=== PATIENT | male | born 1985 | race African-American/Black ===

== ENCOUNTER 2018-02-28 10:59 | Observation (INO) | payer OTHER ==
[~2018-02-28] VITALS: Ht 185.4 cm; Wt 67.4 kg
[2018-02-28] MEDS ORDERED: ONDANSETRON INJ 2 MG/ML 2 ML VIAL IV STA (11:42)
[2018-02-28] MEDS ORDERED: SODIUM CHLORIDE 0.9% 1000ML 1,000 ML IV STA (11:42)
[2018-02-28 12:15] LABS: BASO % 0.1 %; BASO ABS # 0.01 K/uL (0-0.2); HEMATOCRIT 40.6 % (42-52); HEMOGLOBIN 14.8 g/dL (14.0-18.0); IG# 0.03 K/uL (0.00-0.02); LYMPH ABS # 0.58 K/uL (1.2-3.4); MEAN CORPUSCULAR HGB CONC 36.5 g/dl (32-36); MEAN PLATELET VOLUME 10.6 fL (7.4-10.4); MONO % 5.1 %; MONO ABS # 0.59 K/uL (0.11-0.59); NEUT % 89.5 %; NEUT ABS # 10.45 K/uL (1.4-6.5); PLATELET COUNT 158 K/uL (130-400); RED CELL DISTRIBUTION WIDTH CV 11.9 % (11.5-14.5); RED CELL DISTRIBUTION WIDTH SD 41.5 fL (36.4-46.3); WHITE BLOOD COUNT 11.66 K/uL (4.8-10.8)
[2018-02-28 12:31] LABS: BLOOD UREA NITROGEN 16 mg/dl (7-18); CALCIUM 8.9 mg/dl (8.5-10.1); CARBON DIOXIDE 29 mmol/L (21-32); CREATININE 1.11 mg/dl (0.60-1.40); GLUCOSE 110 mg/dl (70-99); POTASSIUM 4.2 mmol/L (3.5-5.1); SODIUM 136 mmol/L (136-145)
--- NOTE | 2018-02-28 12:40 | DIAGNOSTIC IMAGING REPORT ---
HEAD CT NONCONTRAST CT DOSE: 638.56 mGycm HISTORY: Headache. Evaluate for hemorrhage or pathology TECHNIQUE: Multiaxial CT images of the head were performed without the use of intravenous contrast. Automated exposure control was utilized for this study. A dose lowering technique was utilized adhering to the principles of ALARA. Comparison: None. Findings: The paranasal sinuses and mastoid air cells are clear. The calvarium and skull base are intact. The ventricles and sulci are within normal limits. There is no mass, hematoma, midline shift, or acute infarct. Impression: No acute intracranial abnormality. Electronically signed by: Gal Barraza M.D. 02/28/2018 12:39 PM Dictated Date/Time: 02/28/2018 12:32 PM
--- NOTE | 2018-02-28 16:04 | EMERGENCY ROOM VISIT NOTE ---
ED Visit Note First contact with patient: 15:23 The patient was seen and examined with Karla. I agree with the history, physical and findings. Please see the note for disposition and details. Patient reported having syncopal episode while in [facility] waiting against a wall. He was not undergoing any exertional activity at that time. To me he did report some mild chest pain before he passed out. Currently he reports no chest pain. Patient reports no shortness of breath, no hemoptysis, no recent travel, no exogenous hormone or steroid usage, no recent surgery or trauma. Initial EKG showed sinus rhythm with concave ST elevation. Repeat EKG showed sinus rhythm with a rate of 65, NE QRS and QTc intervals within normal limits. Concave ST elevation in leads V4 through V6. Early repolarization seen in V2 and V3. Bedside point care ultrasound did not reveal any pericardial effusion or tamponade. Troponin negative. CT of the head negative. Physical exam within normal limits including no meningeal sign, cardiac regular rate rhythm S1 -S2 auscultated palpable radial pulses bilateral upper extremity palpable DP pulse bilateral lower extremities, lungs clear to auscultation bilaterally, no pain on palpation of the abdomen. Discussed the patient's EKG with Dr. Lyon on -call Soft Work Wrapper Layer And Examiner who agrees that the patient's EKG looks most like early repolarization. Patient has never had any cardiac workup. Will admit to the hospital for chest pain rule out ACS and syncope workup.
[2018-02-28] MEDS ORDERED: ONDANSETRON INJ 2 MG/ML 2 ML VIAL IV PRN (16:30)
[2018-02-28] MEDS ORDERED: ACETAMINOPHEN 325 MG TAB PO PRN (16:30)
--- NOTE | 2018-02-28 16:38 | History and Physical ---
History & Physical Date & Time of Service: Feb 28, 2018 at 16:31 Chief Complaint: Suspected Illicit Drug Use Primary Care Physician: Theresa MONDRAGON History of Present Illness Source: patient This is a 32 year old male with no PMH presented from [facility] for a syncopal episode. Patient states he was in his usual state of health this morning when he passed out; he lost consciousness and does not recall the events of it. Did not have any tongue biting or urine/stool incontinence during the event. Denies chest pain/shortness of breath. Denies nausea/vomiting/diarrhea. States he has been smoking cigarettes more than usual and drinking more coffee; but has had decreased PO intake due to the food at [facility] not being good. Denies having this episode in the past. Currently, he feels fine. Past Medical/Surgical History Medical Problems: (1) Acute electrocardiogram changes (2) Syncope and collapse Family History Maternal Grandmother - DM2, ? seizures Social History Smoking Status: Current Every Day Smoker Allergies Coded Allergies: No Known Allergies (Unverified , 02/28/18) Home Medications No Active Prescriptions or Reported Meds Review of Systems Constitutional: + weakness, No fever, No chills, No sweats, No weight loss, No fatigue Eyes: No worsening of vision ENT: No hearing loss Respiratory: No cough, No sputum, No wheezing, No shortness of breath, No dyspnea on exertion, No dyspnea at rest, No hemoptysis Cardiovascular: No chest pain, No edema, No palpitations Abdomen: No pain, No nausea, No vomiting, No diarrhea, No constipation, No GI bleeding Musculoskeletal: No joint pain, No muscle pain Genitourinary - Male: No hematuria, No dysuria, No urinary frequency, No urinary urgency Neurologic: + memory loss, No paralysis, No weakness, No numbness/tingling, No vertigo, No balance problems Psychiatric: No depression symptoms, No anxiety, No insomnia Endocrine: No fatigue Hematologic / Lymphatic: No abnormal bleeding/bruising Integumentary: No rash Allergic / Immunologic: No environmental allergies, No seasonal allergies Physical Exam Vital Signs Date Time Temp Pulse Resp B/P (MAP) Pulse Ox O2 Delivery O2 Flow Rate FiO2 02/28/18 14:45 64 15 02/28/18 14:35 71 13 02/28/18 14:25 63 15 02/28/18 14:15 70 15 02/28/18 14:05 70 14 02/28/18 13:55 66 16 02/28/18 13:45 65 23 02/28/18 13:40 56 18 116/72 99 Room Air 02/28/18 12:15 68 02/28/18 12:08 67 112/71 60 115/77 02/28/18 12:05 115/77 02/28/18 11:02 36.3 72 18 110/71 98 Room Air General Appearance: WD/WN, no apparent distress Head: normocephalic, atraumatic Eyes: normal inspection, PERRL, EOMI ENT: normal ENT inspection, hearing grossly normal Neck: supple Respiratory/Chest: chest non-tender, lungs clear, normal breath sounds, no respiratory distress, no accessory muscle use Cardiovascular: regular rate, rhythm, no edema, no gallop, no JVD, no murmur, normal peripheral pulses Abdomen/GI: normal bowel sounds, non tender, soft Back: no muscle spasm Extremities/Musculoskelatal: normal inspection, no calf tenderness, normal capillary refill, no pedal edema, normal range of motion Neurologic/Psych: data entry processor II-XII nml as tested, no motor/sensory deficits, alert, normal mood/affect, oriented x 3 Skin: normal color Lymphatic: no adenopathy Diagnostics Laboratory Results Results Past 24 Hours Test 02/28/18 12:00 02/28/18 13:30 02/28/18 15:08 02/28/18 15:10 Range/Units White Blood Count 11.66 4.8-10.8 K/uL Red Blood Count 4.23 4.7-6.1 M/uL Hemoglobin 14.8 14.0-18.0 g/dL Hematocrit 40.6 42-52 % Mean Corpuscular Volume 96.0 80-100 fL Mean Corpuscular Hemoglobin 35.0 25-34 pg Mean Corpuscular Hemoglobin Concent 36.5 32-36 g/dl Platelet Count 158 130-400 K/uL Mean Platelet Volume 10.6 7.4-10.4 fL Neutrophils (%) (Auto) 89.5 % Lymphocytes (%) (Auto) 5.0 % Monocytes (%) (Auto) 5.1 % Eosinophils (%) (Auto) 0.0 % Basophils (%) (Auto) 0.1 % Neutrophils # (Auto) 10.45 1.4-6.5 K/uL Lymphocytes # (Auto) 0.58 1.2-3.4 K/uL Monocytes # (Auto) 0.59 0.11-0.59 K/uL Eosinophils # (Auto) 0.00 0-0.5 K/uL Basophils # (Auto) 0.01 0-0.2 K/uL RDW Standard Deviation 41.5 36.4-46.3 fL RDW Coefficient of Variation 11.9 11.5-14.5 % Immature Granulocyte % (Auto) 0.3 % Immature Granulocyte # (Auto) 0.03 0.00-0.02 K/uL Sodium Level 136 136-145 mmol/L Potassium Level 4.2 3.5-5.1 mmol/L Chloride Level 103 98-107 mmol/L Carbon Dioxide Level 29 21-32 mmol/L Anion Gap 4.0 3-11 mmol/L Blood Urea Nitrogen 16 7-18 mg/dl Creatinine 1.11 0.60-1.40 mg/dl Estimated GFR () 101.3 Estimated GFR (Non- 87.4 BUN/Creatinine Ratio 14.8 10-20 Random Glucose 110 70-99 mg/dl Calcium Level 8.9 8.5-10.1 mg/dl Urine Color YELLOW Urine Appearance CLEAR CLEAR Urine pH 5.0 4.5-7.5 Urine Specific [place] 1.019 1.000-1.030 Urine Protein NEG NEG Urine Glucose (UA) NEG NEG Urine Ketones NEG NEG Urine Occult Blood NEG NEG Urine Nitrite NEG NEG Urine Bilirubin NEG NEG Urine Urobilinogen NEG NEG Urine Leukocyte Esterase NEG NEG Urine Opiates Screen NEG NEG Urine Methadone, Qualitative NEG NEG Urine Barbiturates NEG NEG Urine Phencyclidine (PCP) Level NEG NEG Ur Amphetamine/Methamphetamine NEG NEG MDMA (Ecstasy) Screen NEG NEG Urine Benzodiazepines Screen NEG NEG Urine Cocaine Metabolite NEG NEG Urine Marijuana (THC) NEG NEG Troponin I < 0.015 0-0.045 ng/ml Bedside Troponin I < 0.030 0-0.045 ng/ml Test 02/28/18 16:19 Range/Units Diagnostic Radiology HEAD CT NONCONTRAST CT DOSE: 638.56 mGycm HISTORY: Headache. Evaluate for hemorrhage or pathology TECHNIQUE: Multiaxial CT images of the head were performed without the use of intravenous contrast. Automated exposure control was utilized for this study. A dose lowering technique was utilized adhering to the principles of ALARA. Comparison: None. Findings: The paranasal sinuses and mastoid air cells are clear. The calvarium and skull base are intact. The ventricles and sulci are within normal limits. There is no mass, hematoma, midline shift, or acute infarct. Impression: No acute intracranial abnormality. EKG Normal sinus rhythm Early repolarization Normal ECG Impression Assessment and Plan This is a 32 year old male with no PMH presented from [facility] for a syncopal episode. Syncope - patient states that he had syncopal episode with loss of consciousness - states witnesses stated he was "shaking", but no tongue biting, urine/stool incontinence - will check an EEG to rule out seizure - some early repolarization changes on EKG, denies chest pain or palpitations - will check an echo and carotids, monitor in tele, recheck EKG in AM - likely dehydration, creatinine is at 1.1; will give IVFs, encourage PO intake - U-tox negative, urine negative, will check a CXR Tobacco Use Disorder - smokes cigarettes, but unsure how much, states he smokes a lot and constantly - does not need a nicotine patch at this time - encouraged cessation FULL CODE Resuscitation Status VTE Prophylaxis Will order VTE Prophylaxis: No Reason for no VTE drug order: Treatment not indicated Reason no Mechanical VTE Order: Treatment not indicated
--- NOTE | 2018-02-28 16:55 | DIAGNOSTIC IMAGING REPORT ---
CHEST 2 VIEWS ROUTINE CLINICAL HISTORY: 32 years-old Male presenting with syncope, elevated white count. TECHNIQUE: PA and lateral views of the chest were obtained. COMPARISON: None. FINDINGS: Cardiomediastinal silhouette normal. Lungs and pleural spaces clear. Osseous structures normal. Upper abdomen normal. IMPRESSION: 1. No acute cardiopulmonary disease. Electronically signed by: Wilmer Livingston M.D. 02/28/2018 4:54 PM Dictated Date/Time: 02/28/2018 4:53 PM
--- NOTE | 2018-02-28 17:51 | DIAGNOSTIC IMAGING REPORT ---
ULTRASOUND OF THE CAROTID ARTERIES CLINICAL HISTORY: syncope COMPARISON STUDY: None. TECHNIQUE: Real-time, grayscale, and color Doppler sonography of the carotid arteries was performed. Imaging reviewed in the transverse and longitudinal planes. NASCET criteria was utilized for stenosis calcification. FINDINGS: There is minimal atherosclerotic plaque present . The peak systolic velocity within the right internal carotid artery is 150 cm/sec. The systolic velocity ratio of right internal to common carotid artery is 1.1. The peak systolic velocity within the left internal carotid artery is 153 cm/sec. The systolic velocity ratio left internal to common carotid artery is 1.2. Antegrade flow is seen in the vertebral arteries. The external carotid arteries are patent. Blood pressure in the right arm measured 116 mm/Hg. Blood pressure in the left arm measured 110 mm/Hg. IMPRESSION: No evidence of hemodynamically significant carotid stenosis. Electronically signed by: Stuart Lujan M.D. 02/28/2018 5:50 PM Dictated Date/Time: 02/28/2018 5:48 PM
[2018-02-28 18:00] VITALS: BP 118/73; PULSE 56; TEMP 36.3; O2SAT 100; Ht 185.4 cm; Wt 67.4 kg
[2018-02-28] MEDS: SODIUM CHLORIDE 0.9% 1000ML 1,000 ML IV SCH (18:31)
[2018-02-28 19:32] VITALS: BP_SYST 107; BP_SYST 114; BP_SYST 123; BP_DIAS 63; BP_DIAS 66; BP_DIAS 69; PULSE 55; O2SAT 95
--- NOTE | 2018-02-28 20:38 | EMERGENCY ROOM VISIT NOTE ---
ED Visit Note First contact with patient: 11:23 Chief Complaint: Fall. History of Present Illness: Mr. Stoll is a 32-year-old black male who ambulates into the ED accompanied by 2 building guard deputy sheriff following a collapse. It is reported that the patient was out in the yard at the longterm, had a possible syncopal episode, striking his head and having an unknown length of loss of consciousness. There is no documentation from the longterm of how long the loss of consciousness was and the guards with him only saw the prisoner after he was awake. The patient reports he is amnestic to the event and just remembers walking out into the yard but no events after that. When he was evaluated after the collapse by medical personnel while he was at the longterm he complained of a frontal headache. He was evaluated and found to have tactile hallucinations and flight of ideas and paranoia. [facility] staff questioned whether he has been using illicit drugs. Historically patient denies any previous syncopal episodes, coronary artery disease, hypertension, dyslipidemia, diabetes and family history of heart disease. Before the collapse patient reports he was not having any symptoms and denied lightheadedness, dizziness, chest pain, palpitations. Currently patient is complaining of head pain over the left parietal area. He rates his discomfort 4/10. His pain is nonradiating. His pain worsens with palpation of the left parietal area. He has not identified any alleviating factors related to the pain. He reports he was not taken any medication for pain prior to arrival at the hospital. Associated with his pain he reports he is nauseated and has not vomited. Additionally patient complains of blurry vision for the last few months. He reports last time he was seen by ophthalmology was over a year ago. He denies dizziness, lightheadedness, hearing changes, difficulty speaking, difficulty swallowing, difficulty walking/coordinating body movements, neck pain , back pain, chest pain/discomfort, shortness of breath, abdominal pain, extremity weakness/numbness/tingling Review of Systems: As noted above in history of present illness. All body systems were reviewed and found to be negative as noted above. Past Medical History: Unspecified gastrointestinal disorder. Current Medications: Patient denies. Allergies to Medications: Patient denies. Social History: Patient is currently a prisoner; he admits to tobacco use Physical Examination: Vital Signs: Date Time Temp Pulse Resp B/P (MAP) Pulse Ox O2 Delivery O2 Flow Rate FiO2 02/28/18 16:25 54 17 02/28/18 16:20 57 14 02/28/18 16:15 59 15 02/28/18 16:10 62 15 02/28/18 16:05 60 15 02/28/18 16:00 61 16 02/28/18 15:55 78 16 02/28/18 15:50 62 14 02/28/18 15:45 61 14 02/28/18 15:40 63 15 02/28/18 15:39 112/70 02/28/18 15:35 71 18 02/28/18 15:30 64 18 02/28/18 15:25 76 16 02/28/18 15:20 58 10 02/28/18 15:15 61 15 02/28/18 15:10 71 15 02/28/18 15:05 61 14 02/28/18 15:00 72 15 02/28/18 14:55 66 13 02/28/18 14:50 72 16 02/28/18 14:45 64 15 02/28/18 14:35 71 13 02/28/18 14:25 63 15 02/28/18 14:15 70 15 02/28/18 14:05 70 14 02/28/18 13:55 66 16 02/28/18 13:45 65 23 02/28/18 13:40 56 18 116/72 99 Room Air 02/28/18 12:15 68 02/28/18 12:08 67 112/71 60 115/77 02/28/18 12:05 115/77 02/28/18 11:02 36.3 72 18 110/71 98 Room Air GENERAL: 32-year-old female in mild to moderate distress due to pain, nontoxic- appearing, afebrile and hemodynamically stable. NEUROLOGICAL: Awake, alert and oriented to person, place and time. Answering questions appropriately and following commands. Normal gait. Good hand eye coordination. Cranial nerves II through XII grossly intact. Able to spell world backwards and count backwards. Good short-term and long-term recall. PSYCHOLOGICAL: Alert and oriented. Acting appropriately. No appreciated delusional thoughts. No signs of paranoia. Not responding to any internal or external to stimuli. Denies visual, auditory and tactile hallucinations. No flight of ideas noted. SKIN: Warm, dry and pink. No soft tissue eruptions or trauma noted. HEENT: Atraumatic and normocephalic. Skull: No bony deformity or crepitus. Mild tenderness over the left parietal area without swelling or ecchymosis. No raccoons eyes or [place] signs. No drainage from the ears of the nostril; no hemotympanum. Face: No bony deformity, bony crepitus, swelling or ecchymosis. PERRLA. EOMI without nystagmus. Sclera white and conjunctiva pink. No malocclusion. No intraoral trauma. Airway is patent. Speech is normal and clear. Trachea midline. No jugular venous distention. No carotid bruits. BACK: No tenderness over the bony cervical, thoracic and lumbar spine. Full range of motion of the cervical spine. No CVA tenderness. THORAX: Lungs sounds are clear to auscultation and equal bilaterally with symmetrical chest wall. No wheezing, rales or rhonchi. No crepitus, tenderness , subcutaneous air or deformities noted. HEART: Regular rate and rhythm. No gallops, rubs or murmurs are appreciated. ABDOMEN: Flat, soft and nontender. Positive bowel sounds in all quadrants. No guarding, rigidity or organomegaly. EXTREMITIES: Moves all extremities well on command and with purpose. All distal neurovascular statuses are intact and equal bilaterally. No calf tenderness or cords. ED Course: Patient is assessed as noted above. Patient's medication list was reviewed. Laboratory Testing: Test 02/28/18 12:00 02/28/18 13:30 02/28/18 15:08 02/28/18 15:10 Range/Units White Blood Count 11.66 4.8-10.8 K/uL Red Blood Count 4.23 4.7-6.1 M/uL Hemoglobin 14.8 14.0-18.0 g/dL Hematocrit 40.6 42-52 % Mean Corpuscular Volume 96.0 80-100 fL Mean Corpuscular Hemoglobin 35.0 25-34 pg Mean Corpuscular Hemoglobin Concent 36.5 32-36 g/dl Platelet Count 158 130-400 K/uL Mean Platelet Volume 10.6 7.4-10.4 fL Neutrophils (%) (Auto) 89.5 % Lymphocytes (%) (Auto) 5.0 % Monocytes (%) (Auto) 5.1 % Eosinophils (%) (Auto) 0.0 % Basophils (%) (Auto) 0.1 % Neutrophils # (Auto) 10.45 1.4-6.5 K/uL Lymphocytes # (Auto) 0.58 1.2-3.4 K/uL Monocytes # (Auto) 0.59 0.11-0.59 K/uL Eosinophils # (Auto) 0.00 0-0.5 K/uL Basophils # (Auto) 0.01 0-0.2 K/uL RDW Standard Deviation 41.5 36.4-46.3 fL RDW Coefficient of Variation 11.9 11.5-14.5 % Immature Granulocyte % (Auto) 0.3 % Immature Granulocyte # (Auto) 0.03 0.00-0.02 K/uL Sodium Level 136 136-145 mmol/L Potassium Level 4.2 3.5-5.1 mmol/L Chloride Level 103 98-107 mmol/L Carbon Dioxide Level 29 21-32 mmol/L Anion Gap 4.0 3-11 mmol/L Blood Urea Nitrogen 16 7-18 mg/dl Creatinine 1.11 0.60-1.40 mg/dl Estimated GFR () 101.3 Estimated GFR (Non- 87.4 BUN/Creatinine Ratio 14.8 10-20 Random Glucose 110 70-99 mg/dl Calcium Level 8.9 8.5-10.1 mg/dl Urine Color YELLOW Urine Appearance CLEAR CLEAR Urine pH 5.0 4.5-7.5 Urine Specific [place] 1.019 1.000-1.030 Urine Protein NEG NEG Urine Glucose (UA) NEG NEG Urine Ketones NEG NEG Urine Occult Blood NEG NEG Urine Nitrite NEG NEG Urine Bilirubin NEG NEG Urine Urobilinogen NEG NEG Urine Leukocyte Esterase NEG NEG Urine Opiates Screen NEG NEG Urine Methadone, Qualitative NEG NEG Urine Barbiturates NEG NEG Urine Phencyclidine (PCP) Level NEG NEG Ur Amphetamine/Methamphetamine NEG NEG MDMA (Ecstasy) Screen NEG NEG Urine Benzodiazepines Screen NEG NEG Urine Cocaine Metabolite NEG NEG Urine Marijuana (THC) NEG NEG Total Creatine Kinase 107 39-308 U/L Troponin I < 0.015 0-0.045 ng/ml Bedside Troponin I < 0.030 0-0.045 ng/ml EKG: #1: Was read by myself and reviewed with Dr. Chase; shows normal sinus rhythm with sinus arrhythmia. Ventricular rate [address] elevations noted in multiple leads appears to be related to early repolarization. No previous to compare. EKG #2: Was read by myself and reviewed with Dr. Chase; shows normal sinus rhythm with a ventricular rate of [address] elevations once again consistent with possible early repolarization was noted and was similar to previous. Patient was hydrated with normal saline; he received 4 mg of Zofran IV for nausea and 650 mg of acetaminophen IV for his headache. Patient was reassessed multiple times during his stay in the emergency department. Patient's case was reviewed with Dr. Chase; he did report to Dr. Chase that he was experiencing chest pain before the syncopal episode and because of his EKG changes it was felt he should be brought in the hospital for observation. Dr. Chase spoke to the in mold coater on-call as well as the hospitalist for medical observation/admission; please see his notes. Patient was educated about today's findings. Clinical Impression: Syncope. EKG changes. Decision-Making: Initially my differential diagnosis I considered syncope, closed head injury, arrhythmia, myocardial infarction and other causes. Disposition and Plan: Patient to be admitted to hospital by the hospitalist for medical observation/admission; please see their notes and orders for final disposition and plan.
[2018-02-28] MEDS ORDERED: IV FLUIDS COMPLETED PRN (21:30)
[2018-02-28 23:43] VITALS: BP 91/45; PULSE 53; TEMP 36.9; O2SAT 99
[2018-03-01] MEDS: SODIUM CHLORIDE 0.9% 1000ML 1,000 ML IV SCH ×2 (02:24→15:21)
[2018-03-01 04:10] VITALS: BP 103/51; PULSE 57; TEMP 36.5; O2SAT 98
[2018-03-01 04:42] LABS: HEMATOCRIT 36.1 % (42-52); HEMOGLOBIN 13.1 g/dL (14.0-18.0); MEAN CELL VOLUME 95.5 fL (80-100); MEAN CORPUSCULAR HEMOGLOBIN 34.7 pg (25-34); MEAN CORPUSCULAR HGB CONC 36.3 g/dl (32-36); MEAN PLATELET VOLUME 10.1 fL (7.4-10.4); PLATELET COUNT 151 K/uL (130-400); RED CELL DISTRIBUTION WIDTH SD 41.3 fL (36.4-46.3); WHITE BLOOD COUNT 5.95 K/uL (4.8-10.8)
[2018-03-01 05:02] LABS: ALBUMIN 3.4 gm/dl (3.4-5.0); ALT/SGPT 15 U/L (12-78); AST/SGOT 10 U/L (15-37); BLOOD UREA NITROGEN 15 mg/dl (7-18); CALCIUM 8.4 mg/dl (8.5-10.1); CARBON DIOXIDE 28 mmol/L (21-32); CREATININE 1.05 mg/dl (0.60-1.40); GLUCOSE 86 mg/dl (70-99); SODIUM 139 mmol/L (136-145)
[2018-03-01 05:07] LABS: ALKALINE PHOSPHATASE 94 U/L (45-117); TOTAL PROTEIN 6.2 gm/dl (6.4-8.2)
[2018-03-01 07:55] VITALS: BP 110/62; PULSE 50; TEMP 36.8; O2SAT 98
--- NOTE | 2018-03-01 09:15 | ECHOCARDIOGRAM REPORT ---
*NOTICE TO RECEIVING [employer] This information is strictly Confidential and protected under [place] law. [place] law prohibits you from making any further disclosure of this information unless further disclosure is expressly permitted by the written consent of the person to whom it pertains or is authorized by law. A general authorization for the release of medical or other information is not sufficient for this purpose. Hospital accepts no responsibility if the information is made available to any other person, INCLUDING THE PATIENT. Interpretation Summary * Name: YAYA MANN [id number] Study Date: 03/01/2018 06:39 AM BP: 103/51 mmHg * Patient Location: [facility] HR: 49 * : 1985 (M/d/yyyy) Gender: Male Height: 73 in * Age: 32 yrs Ethnicity: AA Weight: 143 lb * Referring Physician: Ce Marquez * Performed By: Vini Lawrence RDCS * * Reason For Study: Syncope * BSA: 1.9 m2 * -- Conclusions -- * The left ventricle is normal in size. * Left ventricular systolic function is normal. * Ejection Fraction = 55-60%. * The right ventricular systolic function is normal. * The left atrial size is normal. * Right atrial size is normal. * No significant valvular pathology. Procedure Details * A complete two-dimensional transthoracic echocardiogram was performed (2D, M-mode, Doppler and color flow Doppler). * The study was technically adequate. Left Ventricle * The left ventricle is normal in size. * There is mild concentric left ventricular hypertrophy. * Left ventricular systolic function is normal. * Ejection Fraction = 55-60%. * The left ventricular wall motion is normal. Right Ventricle * The right ventricle is normal size. * The right ventricular systolic function is normal. Atria * The left atrial size is normal. * Right atrial size is normal. * The interatrial septum is intact with no evidence for an atrial septal defect. Mitral Valve * The mitral valve anatomy is normal. * Significant mitral regurgitation is absent. Tricuspid Valve * The tricuspid valve anatomy is normal. * Significant tricuspid regurgitation is absent. Aortic Valve * The aortic valve is normal in structure and function. Pulmonic Valve * The pulmonic valve is not well seen, but is grossly normal. * There is no significant pulmonary regurgitation. Great Vessels * The aortic root and proximal ascending aorta are normal sized. Pericardium/Pleural * There is no pericardial effusion. MMode 2D Measurements and Calculations IVSd 0.78 cm IVSs 1.2 cm LVIDd 4.6 cm LVIDs 2.9 cm LVPWd 0.96 cm LVPWs 1.5 cm IVS/LVPW 0.81 FS 36.6 % EDV(Teich) 96.7 ml ESV(Teich) 32.4 ml EF(Teich) 66.5 % EDV(cubed) 96.5 ml ESV(cubed) 24.6 ml EF(cubed) 74.5 % % IVS thick 60.3 % % LVPW thick 59.8 % LV mass(C)d 131.0 grams LV mass(C)dI 70.2 grams/m\S\2 LV mass(C)s 133.5 grams LV mass(C)sI 71.6 grams/m\S\2 SV(Teich) 64.3 ml SI(Teich) 34.5 ml/m\S\2 SV(cubed) 72.0 ml SI(cubed) 38.6 ml/m\S\2 EPSS 0.59 cm Ao root diam 3.1 cm Ao root area 7.4 cm\S\2 ACS 2.0 cm LA dimension 2.9 cm asc Aorta Diam 3.2 cm LA/Ao 0.94 LVOT diam 2.0 cm LVOT area 3.0 cm\S\2 LVAd ap4 30.2 cm\S\2 LVLd ap4 8.3 cm EDV(MOD-sp4) 90.0 ml EDV(sp4-el) 93.5 ml LVAs ap4 16.7 cm\S\2 LVLs ap4 6.7 cm ESV(MOD-sp4) 35.5 ml ESV(sp4-el) 35.3 ml EF(MOD-sp4) 60.5 % EF(sp4-el) 62.3 % LVAd ap2 40.3 cm\S\2 LVLd ap2 9.9 cm EDV(MOD-sp2) 138.0 ml EDV(sp2-el) 139.7 ml LVAs ap2 20.7 cm\S\2 LVLs ap2 7.5 cm ESV(MOD-sp2) 48.0 ml ESV(sp2-el) 48.3 ml EF(MOD-sp2) 65.2 % EF(sp2-el) 65.4 % LVLd %diff 15.9 % EDV(MOD-bp) 121.0 ml LVLs %diff 11.4 % ESV(MOD-bp) 43.8 ml EF(MOD-bp) 63.8 % SV(MOD-sp4) 54.4 ml SI(MOD-sp4) 29.2 ml/m\S\2 SV(MOD-sp2) 89.9 ml SI(MOD-sp2) 48.2 ml/m\S\2 SV(MOD-bp) 77.2 ml SI(MOD-bp) 41.4 ml/m\S\2 SV(sp4-el) 58.2 ml SI(sp4-el) 31.2 ml/m\S\2 SV(sp2-el) 91.3 ml SI(sp2-el) 48.9 ml/m\S\2 Doppler Measurements and Calculations MV E max cassy 86.8 cm/sec MV A max cassy 53.4 cm/sec MV E/A 1.6 MV dec time 0.21 sec Ao V2 max 135.5 cm/sec Ao max PG 7.3 mmHg Ao max PG (full) 3.1 mmHg PAULA(V,A) 2.3 cm\S\2 PAULA(V,D) 2.3 cm\S\2 LV V1 max PG 4.3 mmHg LV V1 max 103.5 cm/sec PA V2 max 100.1 cm/sec PA max PG 4.0 mmHg PA acc slope 578.8 cm/sec\S\2 PA acc time 0.15 sec PA pr(Accel) 10.3 mmHg
[2018-03-01 12:15] VITALS: BP 111/64; PULSE 60; TEMP 37; O2SAT 99
[2018-03-01 16:44] VITALS: BP 116/60; PULSE 61; TEMP 37; O2SAT 99
--- NOTE | 2018-03-01 17:41 | Discharge Instructions ---
Discharge Instructions Date of Service Mar 01, 2018. Admission Reason for Admission: Acute Electrocardiogram Changes, Syncope Discharge Discharge Diagnosis / Problem: SYNCOPE /POSSIBLE VASOVAGAL SYNCOPE EPISODE / DEHYDRATION Discharge Goals Goal(s): Improve disease control, Therapeutic intervention Activity Recommendations Activity Limitations: resume your previous activity . Instructions / Follow-Up Instructions / Follow-Up FOLLOW UP WITH PHYSICIAN AT THE [facility] Current Hospital Diet Patient's current hospital diet: Regular Diet Discharge Diet Recommended Diet: Regular Diet Pending Studies Studies pending at discharge: no Medical Emergencies . Who to Call and When: Medical Emergencies: If at any time you feel your situation is an emergency, please call 911 immediately. . Non-Emergent Contact Non-Emergency issues call your: Primary Care Provider . . "Provider Documentation" section prepared by Yudy Velasquez. .
--- NOTE | 2018-03-01 17:59 | Discharge Summary ---
Discharge Summary Date of Service Mar 01, 2018. Discharge Summary Admission Date: Feb 28, 2018 at 16:29 Discharge Date: Mar 01, 2018 Discharge Disposition: Home (correctional facility ) Principal Diagnosis: SYNCOPE /POSSIBLE VASOVAGAL SYNCOPE EPISODE /DEHYDRATION Procedures: Echocardiogram left ventricle is normal and is left ventricular systolic function is Ejection fraction 55-60% Left ventricular systolic function normal No significant valvular pathology Medication Reconciliation Medication Profile: No Active Prescriptions or Reported Meds Admission Information HPI (per Admitting provider): This is a 32 year old male with no PMH presented from [facility]-way for a syncopal episode. Patient states he was in his usual state of health this morning when he passed out; he lost consciousness and does not recall the events of it. Did not have any tongue biting or urine/stool incontinence during the event. Denies chest pain/shortness of breath. Denies nausea/vomiting/diarrhea. States he has been smoking cigarettes more than usual and drinking more coffee; but has had decreased PO intake due to the food at half-way not being good. Denies having this episode in the past. Currently, he feels fine. Physical Exam (per Admitting): General Appearance: WD/WN, no apparent distress Head: normocephalic, atraumatic Eyes: normal inspection, PERRL, EOMI ENT: normal ENT inspection, hearing grossly normal Neck: supple Respiratory/Chest: chest non-tender, lungs clear, normal breath sounds, no respiratory distress, no accessory muscle use Cardiovascular: regular rate, rhythm, no edema, no gallop, no JVD, no murmur , normal peripheral pulses Abdomen/GI: normal bowel sounds, non tender, soft Back: no muscle spasm Extremities/Musculoskelatal: normal inspection, no calf tenderness, normal capillary refill, no pedal edema, normal range of motion Neurologic/Psych: cco & president II-XII nml as tested, no motor/sensory deficits, alert , normal mood/affect, oriented x 3 Skin: normal color Lymphatic: no adenopathy Hospital Course No complaint of dizzy spells no lightheadedness Syncopal episode No arrhythmia noted on telemetry Physical exam General: No sign of distress HEENT: Sclera nonicteric Lungs: Clear to auscultate no wheeze or rales Heart: Regular S1-S2 Abdomen: Soft nontender Extremity no rash or different Neuro: No focal neurological deficit, and alert awake oriented 3 Syncope -Possible vasovagal response No arrhythmia noted on telemetry Echo within normal limit Vitals remained stable Stable to return back to present to the Tobacco Use Disorder - smokes cigarettes, but unsure how much, states he smokes a lot and constantly - does not need a nicotine patch at this time - encouraged smoking cessation FULL CODE Disposition Return back to half-way today Discharge Instructions Discharge Instructions Date of Service Mar 01, 2018. Admission Reason for Admission: Acute Electrocardiogram Changes, Syncope Discharge Discharge Diagnosis / Problem: SYNCOPE /POSSIBLE VASOVAGAL SYNCOPE EPISODE / DEHYDRATION Discharge Goals Goal(s): Improve disease control, Therapeutic intervention Activity Recommendations Activity Limitations: resume your previous activity . Instructions / Follow-Up Instructions / Follow-Up FOLLOW UP WITH PHYSICIAN AT [facility] Current Hospital Diet Patient's current hospital diet: Regular Diet Discharge Diet Recommended Diet: Regular Diet Pending Studies Studies pending at discharge: no Medical Emergencies . Who to Call and When: Medical Emergencies: If at any time you feel your situation is an emergency, please call 911 immediately. . Non-Emergent Contact Non-Emergency issues call your: Primary Care Provider . . "Provider Documentation" section prepared by Yudy Velasquez. .
[2018-03-01 18:00] VITALS: BP_SYST 113; BP_SYST 117; BP_SYST 120; BP_DIAS 65; BP_DIAS 66; BP_DIAS 71; PULSE 53; PULSE 59; PULSE 63
[2018-03-01 18:14] VITALS: BP 116/60; PULSE 61; TEMP 37; O2SAT 99
== END 2018-03-01 19:10 | disposition home or self-care (01) ==
LOC: C.EDB 11:02 → C.2T 16:29 → ENRESERV 17:09
PROVIDERS: ADMIT Family Medicine; ATTEND Hospitalist
DX: R55 Syncope and collapse (principal); E86.0 Dehydration; F17.200 Nicotine dependence, unspecified, uncomplicated; Z83.3 Family history of diabetes mellitus